=== PATIENT | male | born 1980 | race Caucasian/White ===

== ENCOUNTER 2023-10-29 17:25 | Emergency (ER) | payer OTHER ==
[~2023-10-29] VITALS: Ht 172.7 cm; Wt 131.5 kg
[2023-10-29 17:55] LABS: BASOPHILS # (AUTO) 0.05 K/uL (0.00-0.20); BASOPHILS % (AUTO) 0.7 % (0.0-5.0); EOSINOPHILS # (AUTO) 0.35 K/uL (0.00-0.70); EOSINOPHILS % (AUTO) 4.7 % (0.0-8.0); HEMATOCRIT 46.6 % (42-54); IMMATURE GRANULOCYTE ABSOLUTE 0.02 K/uL (0-1); LYMPHOCYTES # (AUTO) 2.6 K/uL (1.0-4.8); LYMPHOCYTES % (AUTO) 35.2 % (21.0-51.0); MEAN CORPUSCULAR HEMOGLOBIN 30.4 pg (27.0-33.0); MEAN CORPUSCULAR HGB CONC 34.3 g/dL (32.0-36.0); MEAN CORPUSCULAR VOLUME 88.6 fL (79-99); MONOCYTES # (AUTO) 0.7 K/uL (0.1-1.0); MONOCYTES % (AUTO) 9.9 % (3.0-13.0); NEUTROPHILS # (AUTO) 3.7 K/uL (1.8-7.7); NEUTROPHILS % (AUTO) 49.2 % (40.0-77.0); PLATELET COUNT (AUTO) 356 K/uL (130-400); RED BLOOD CELL COUNT(AUTO) 5.26 MIL/uL (4.50-6.20); RED CELL DISTRIBUTION WIDTH 12.3 % (11.0-15.5); WHITE BLOOD COUNT (AUTO) 7.5 K/uL (4.8-10.8)
[2023-10-29 18:06] LABS: POTASSIUM 4.1 mmol/L (3.5-5.1)
[2023-10-29 18:11] LABS: ALBUMIN 3.5 g/dL (3.5-5.0); BILIRUBIN,TOTAL 0.2 mg/dL (0.2-1.0)
[2023-10-29] MEDS: ASPIRIN 325MG TAB PO ONE (18:36)
[2023-10-29 18:54] LABS: APPEARANCE,URINE CLEAR (CLEAR); BILIRUBIN,URINE NEGATIVE (NEGATIVE); COLOR,URINE LIGHT-YELLOW (YELLOW); GLUCOSE, URINE (UA) NEGATIVE (NEGATIVE); KETONES,URINE NEGATIVE (NEGATIVE); LEUKOCYTE ESTERASE ,URINE NEGATIVE Leu/uL (NEGATIVE); NITRATE,URINE NEGATIVE (NEGATIVE); OCCULT BLOOD,URINE NEGATIVE (NEGATIVE); PH,URINE 5.5 (5.0-8.0); PROTEIN,URINE NEGATIVE (NEGATIVE); UROBILINOGEN,URINE 0.2 mg/dL (0.2-1.0)
[2023-10-29 19:01] LABS: ADD UA MICROSCOPIC NO
[2023-10-29 19:55] VITALS: BP 136/79; PULSE 65; RESP 18; O2SAT 100
== END 2023-10-29 20:06 | disposition home or self-care (01) ==
LOC: EDH 17:25
DX: R07.89 Other chest pain (principal); F41.9 Anxiety disorder, unspecified
CPT/HCPCS: 36415; 71045; 80053; 81003; 84484; 85025; 93005

== ENCOUNTER 2024-12-09 10:03 | Emergency (ER) | payer OTHER ==
[~2024-12-09] VITALS: Ht 172.7 cm; Wt 145.1 kg
--- NOTE | 2024-12-09 10:19 | ERN ---
ED Note History of Present Illness Stated Complaint: FLANK PAIN Chief Complaint: Flank Pain Time Seen by MD: 10:08 Dictation: PATIENT IS A 43-YEAR-OLD MALE COMING IN FROM THE [facility] WITH COMPLAINTS OF LEFT FLANK PAIN THAT RADIATES TO LEFT LOWER QUADRANT. HE DENIES FEVER CHILLS NAUSEA VOMITING NO CHANGE IN URINATION. STATES HE HAS A HISTORY OF KIDNEY STONES, UROLOGISTS IS IN [facility]. HE HAS TAKEN NOTHING TODAY PRIOR TO ARRIVAL PAIN STOMACH STATES IT WAS A SUDDEN ONSET OF PAIN. Allergies: Coded Allergies: No Known Drug Allergies (Unverified Allergy, Unknown, 10/29/23) Past Medical History Past Medical History: Anxiety Surgical History: None RN Note Reviewed/Agreed w/PFSH: Yes Review of System Dictation CONSTITUTIONAL: NEGATIVE EXCEPT FOR HPI HEAD/FACE: NEGATIVE EXCEPT FOR HPI EENT: NEGATIVE EXCEPT FOR HPI RESPIRATORY: NEGATIVE EXCEPT FOR HPI GASTROINTESTINAL/ABDOMINAL: NEGATIVE EXCEPT FOR HPI LEFT FLANK PAIN THAT RADIATES LEFT LOWER QUADRANT GENITOURINARY: NEGATIVE EXCEPT FOR HPI MUSCULOSKELETAL: NEGATIVE EXCEPT FOR HPI INTEGUMENTARY: NEGATIVE EXCEPT FOR HPI NEUROLOGICAL/PSYCH: NEGATIVE EXCEPT FOR HPI HEMATOLOGIC/LYMPHATIC: NEGATIVE EXCEPT FOR HPI ALL SYSTEMS NEGATIVE, EXCEPT NOTED ABOVE. 13 POINT REVIEW OF SYSTEMS ASSESSED AND ALL NEGATIVE EXCEPT FOR ABOVE. Initial Vital Sign VS Vital Signs Date Time Temp Pulse Resp B/P (MAP) Pulse Ox O2 Delivery O2 Flow Rate FiO2 12/09/24 10:04 97.9 78 18 169/95 95 Room Air Physical Exam Dictation VITAL SIGNS REVIEWED GENERAL APPEARANCE: ALERT, ORIENTED X 3, MODERATE ACUTE DISTRESS, WELL DEVELOPED, NOURISHED. OBESE HEAD AND FACE: NON-TRAUMATIC. EYES: PERRL, PINK CONJUNCTIVAS, EYELID NO TRAUMA, ANTERIOR CHAMBER WITH ARCUS SENILIS. EARS: PINNAS INTACT AND NO SIGNS OF TRAUMA OR ERYTHEMA EAR CANALS CLEAR AND NO DISCHARGE TM NO ERYTHEMA NOSE: NO DISCHARGE, NO BLEEDING. OROPHARYNX: MOUTH NORMAL, TONGUE PINK, PHARYNX CLEAR,NO ERYTHEMA, TONSILS NO EXUDATES, NO ABSCESSES NOTED, MUCOUS MEMBRANE MOIST NECK: SUPPLE, NON-TENDER, NO THYROMEGALY, NO MASSES, NO JVD, NO BRUITS BREAST:DEFERRED CHEST:NO TENDERNESS, NO CREPITUS, NO PARADOXICAL MOVEMENT, NO RETRACTIONS LUNGS:CLEAR, WELL-VENTILATED, SYMMETRIC, NO RALES, NO WHEEZING, NO RHONCHI, NO STRIDOR, GOOD BREATH SOUNDS BILATERALLY HEART: REGULAR RATE, REGULAR RHYTHM, NO MURMUR, NO GALLOPS VASCULAR: NO PERIPHERAL EDEMA, ABDOMEN: SOFT, POSITIVE BOWEL SOUNDS, NONDISTENDED, NO GUARDING, NONTENDER, NO REBOUND, NO MASSES NO HEPATOMEGALY, NO SPLENOMEGALY, NO MEDLEY'S SIGN, NO HERNIAS. NEGATIVE CVAT BILATERALLY RECTAL: DEFERRED GENITAL: DEFERRED NEUROLOGICAL: NORMAL SPEECH, MOTOR FUNCTION INTACT, SENSORY FUNCTION INTACT MUSCULOSKELETAL: NECK NONTENDER, FULL RANGE OF MOTION, BACK NONTENDER, FULL RANGE OF MOTION, EXTREMITIES: NONTENDER, FULL RANGE OF MOTION SKIN: COLOR PINK, DRY, NO TURGOR, NO RASH, NO LACERATIONS, NO ABRASIONS, NO CONTUSIONS. LYMPHATIC: DEFERRED Results (Laboratory/Radiology) Laboratory/Radiology Laboratory Tests Test 12/09/24 10:17 12/09/24 10:29 Urine Color COLORLESS (YELLOW) Urine Appearance CLEAR (CLEAR) Urine pH 5.5 (5.0-8.0) Urine Specific [place] 1.009 (1.001-1.031) Urine Protein NEGATIVE mg/dL (NEGATIVE) Urine Glucose (UA) NEGATIVE mg/dL (NEGATIVE) Urine Ketones NEGATIVE mg/dL (NEGATIVE) Urine Occult Blood SMALL (NEGATIVE) H Urine Nitrate NEGATIVE (NEGATIVE) Urine Bilirubin NEGATIVE mg/dL (NEGATIVE) Urine Urobilinogen 0.2 mg/dL (0.2-1.0) Urine Leukocyte Esterase NEGATIVE Nadiya/uL Urine RBC 2-5 /HPF (0-1) H Urine WBC 0-1 /HPF (0-1) Urine Bacteria None /HPF (None Seen) White Blood Count 8.2 K/uL (4.8-10.8) Red Blood Count 5.19 MIL/uL (4.50-6.20) Hemoglobin 15.1 g/dL (14.0-18.0) Hematocrit 45.5 % (42-54) Mean Corpuscular Volume 87.7 fL (79-99) Mean Corpuscular Hemoglobin 29.1 pg (27.0-33.0) Mean Corpuscular Hemoglobin Concent 33.2 g/dL (32.0-36.0) Red Cell Distribution Width 12.2 % (11.0-15.5) Platelet Count 350 K/uL (130-400) Mean Platelet Volume 8.4 fL (7.5-10.5) Immature Granulocyte % (Auto) 0.6 % (0-1) Neutrophils (%) (Auto) 48.3 % (40.0-77.0) Lymphocytes (%) (Auto) 38.9 % (21.0-51.0) Monocytes (%) (Auto) 6.0 % (3.0-13.0) Eosinophils (%) (Auto) 5.7 % (0.0-8.0) Basophils (%) (Auto) 0.5 % (0.0-5.0) Neutrophils # (Auto) 4.0 K/uL (1.8-7.7) Lymphocytes # (Auto) 3.2 K/uL (1.0-4.8) Monocytes # (Auto) 0.5 K/uL (0.1-1.0) Eosinophils # (Auto) 0.47 K/uL (0.00-0.70) Basophils # (Auto) 0.04 K/uL (0.00-0.20) Absolute Immature Granulocyte (auto 0.05 K/uL (0-1) Nucleated Red Blood Cells 0.0 % (0.0-0.19) Sodium Level 141 mmol/L (136-145) Potassium Level 4.1 mmol/L (3.5-5.1) Chloride Level 106 mmol/L (101-111) Carbon Dioxide Level 28 mmol/L (21-32) Blood Urea Nitrogen 12 mg/dL (7-18) Creatinine 1.0 mg/dL (0.5-1.3) Glomerular Filtration Rate Calc 95 mL/min (>90) Random Glucose 120 mg/dL (70-105) H Total Calcium 8.9 mg/dL (8.5-10.1) Lipase 104 U/L (16-77) H CT ABDOMEN/PELVIS W/O CONTRAST REASON: LEFT FLANK PAIN RADIATING LEFT LOWER QUADRANT HISTORY OF STONE COMPARISON: None. FINDINGS: Lung bases are clear. There is moderate hepatic steatosis.. The liver does not appear enlarged.. Spleen and pancreas appear unremarkable. The gallbladder appears normal as well. There are bilateral small kidney stones, 2 in each kidney, each less than 5 mm. There is mild left hydronephrosis and hydroureter. There is a 3 mm stone distal left ureter in the intramural portion of the ureter at the ureterovesical junction. The right ureter appears unremarkable. Urinary bladder appears normal. Bowel loops appear unremarkable. This includes normal appearance of the appendix There is no evidence of free fluid or intraperitoneal air. There are no focal fluid collections. Aorta and retroperitoneum appear normal as do pelvic soft tissue structures. The anterior abdominal wall is intact. Osseous structures appear unremarkable. IMPRESSION: 1. 3 mm stone in the distal left ureter at ureterovesical junction, there is mild left hydronephrosis. 2. There are additional subcentimeter nonobstructing stones, several in each kidney, the kidneys appear otherwise normal. 3. Moderate hepatic steato Labs Reviewed?: Yes ED Course ED Course Orders Procedure Category Date Status Time Cbc With Differential LAB 12/09/24 Complete 10:18 Urinalysis Profile LAB 12/09/24 Complete 10:18 0.9%Nacl 1000ml (Ns PHA 12/09/24 Complete 1000ml) 10:30 Ketorolac PHA 12/09/24 Complete Tromethamine 30mg/Ml 10:30 Ct Abdomen/Pelvis W/O CT 12/09/24 Resulted Contrast 10:18 Lipase LAB 12/09/24 Complete 10:18 Basic Metabolic Panel LAB 12/09/24 Complete 10:18 Tamsulosin Hcl PHA 12/09/24 Transmitted (Flomax) 12:30 Current Medications Medications (Trade) Dose Ordered Sig/Negra Route PRN Reason Start Time Stop Time Status Last Admin Dose Admin Ketorolac Tromethamine (toRADol) 30 mg ONCE ONCE IVP 12/09/24 10:30 12/09/24 10:31 DC 12/09/24 10:25 Sodium Chloride 1,000 ml @ 0 mls/hr ONCE ONCE IV 12/09/24 10:30 12/09/24 10:31 DC 12/09/24 10:24 Vital Signs Date Time Temp Pulse Resp B/P (MAP) Pulse Ox O2 Delivery O2 Flow Rate FiO2 12/09/24 10:04 97.9 78 18 169/95 95 Room Air 1218/PATIENT HAS A 3 MM STONE ON THE LEFT WITH MILD HYDRO NEPHROSIS. BUN AND CREATININE ARE NORMAL. PATIENT WILL BE DISCHARGED HOME WITH NONOBSTRUCTIVE STONE WE WILL BE GIVEN IBUPROFEN AND FLOMAX REFERRED TO DR. GRIDER, TOLD INCREASE FLUIDS. Medical Decision Making MDM MEDICAL DISCHARGE MAKING BASED ON BASIC LABS AND CT FOR STONE PROTOCOL. LABS ESSENTIALLY UNREMARKABLE EXCEPT FOR HEMATURIA BUN AND CREATININE NORMAL PATIENT HAS A NONOBSTRUCTIVE 3 MM STONE TO THE LEFT UVJ JUNCTION MILD HYDRO NEPHROSIS. GIVEN IV FLUIDS, FLOMAX AND TORADOL NO PAIN AT THIS TIME. DX & DISP Disposition: Discharge Departure Impression: Primary Impression: Urolithiasis Additional Impressions: Hydronephrosis, left, Hematuria Condition: Stable Scripts Ibuprofen (Ibuprofen 800 mg Tab) 800 Mg Tab 800 MG PO Q8H PRN for fever or pain, #30 TAB 0 Refills Prov: SIVAN SELBY CATERPILLAR DRIVER 12/09/24 Tamsulosin HCl (Flomax) 0.4 Mg Cap.er.24h 0.4 MG PO DAILY for 14 Days, #[address] CAPSULE[address] Prov: SIVAN SELBY CATERPILLAR DRIVER 12/09/24 Additional Instructions: FOLLOW-UP WITH PRIMARY CARE PROVIDER IN 1 TO 2 DAYS. TAKE MEDICATIONS DIRECTED HERE IN THE EMERGENCY ROOM. OKAY TO CONTINUE HOME MEDICATIONS UNLESS OTHERWISE DISCUSSED DURING YOUR VISIT IN THE EMERGENCY ROOM TODAY. RETURN TO YOUR NEAREST EMERGENCY ROOM IF SYMPTOMS WORSEN OR IF THERE IS NO IMPROVEMENT. CALL 911 IF YOU NEED IMMEDIATE ASSISTANCE. TAKE TYLENOL OR MOTRIN OVER -THE-COUNTER NEEDED AND IF NO CONTRAINDICATIONS ARE PRESENT. INCREASE ORAL HYDRATION. A WOUND CULTURE OR URINE CULTURE WAS ORDERED HERE IN THE EMERGENCY ROOM DEPARTMENT PLEASE FOLLOW-UP WITH PRIMARY CARE PROVIDER AND ADVISE THEM TO GET REPEAT PORTS FROM OUR FACILITY. IF YOU HAD ANY DONNIE WRAP/SPLINTS THAT WERE APPLIED HERE, PLEASE DO NOT REMOVE THEM UNTIL YOU SEE YOUR PRIMARY CARE OR SPECIALTY. TAKE FLOMAX DIRECTED DAILY. INCREASE YOUR WATER INTAKE. FOLLOW UP WITH UROLOGIST IN THE NEXT 1-2 DAYS, CALL FOR AN APPOINTMENT OR SEE YOUR UROLOGIST IN [facility]. Referrals: FERNIE ALVAREZ (PCP) IRVING GRIDER MD Time of Disposition: 12:21 I have reviewed the case, and I agree with, Diagnosis and Plan SIVAN SELBY NP Dec 09, 2024 10:19
[2024-12-09 10:24] LABS: APPEARANCE,URINE CLEAR (CLEAR); BILIRUBIN,URINE NEGATIVE (NEGATIVE); COLOR,URINE COLORLESS (YELLOW); GLUCOSE, URINE (UA) NEGATIVE (NEGATIVE); KETONES,URINE NEGATIVE (NEGATIVE); LEUKOCYTE ESTERASE ,URINE NEGATIVE Leu/uL (NEGATIVE); NITRATE,URINE NEGATIVE (NEGATIVE); OCCULT BLOOD,URINE SMALL (NEGATIVE); PH,URINE 5.5 (5.0-8.0); PROTEIN,URINE NEGATIVE (NEGATIVE); UROBILINOGEN,URINE 0.2 mg/dL (0.2-1.0)
[2024-12-09] MEDS: 0.9%NACL 1000ML 1,000 ML IV ONE (10:24)
[2024-12-09] MEDS: ketOROlac 30MG VIAL (30MG/ML) IVP ONE (10:25)
[2024-12-09 10:36] LABS: BASOPHILS # (AUTO) 0.04 K/uL (0.00-0.20); BASOPHILS % (AUTO) 0.5 % (0.0-5.0); EOSINOPHILS # (AUTO) 0.47 K/uL (0.00-0.70); EOSINOPHILS % (AUTO) 5.7 % (0.0-8.0); HEMATOCRIT 45.5 % (42-54); IMMATURE GRANULOCYTE ABSOLUTE 0.05 K/uL (0-1); LYMPHOCYTES # (AUTO) 3.2 K/uL (1.0-4.8); LYMPHOCYTES % (AUTO) 38.9 % (21.0-51.0); MEAN CORPUSCULAR HEMOGLOBIN 29.1 pg (27.0-33.0); MEAN CORPUSCULAR HGB CONC 33.2 g/dL (32.0-36.0); MEAN CORPUSCULAR VOLUME 87.7 fL (79-99); MONOCYTES # (AUTO) 0.5 K/uL (0.1-1.0); NEUTROPHILS % (AUTO) 48.3 % (40.0-77.0); PLATELET COUNT (AUTO) 350 K/uL (130-400); RED BLOOD CELL COUNT(AUTO) 5.19 MIL/uL (4.50-6.20); RED CELL DISTRIBUTION WIDTH 12.2 % (11.0-15.5); WHITE BLOOD COUNT (AUTO) 8.2 K/uL (4.8-10.8)
[2024-12-09 10:37] LABS: ADD UA MICROSCOPIC YES
[2024-12-09 10:40] LABS: WBC,URINE 0-1 /HPF (0-1)
[2024-12-09 10:48] LABS: POTASSIUM 4.1 mmol/L (3.5-5.1)
--- NOTE | 2024-12-09 12:12 | HMCIMG ---
CT ABDOMEN/PELVIS W/O CONTRAST REASON: LEFT FLANK PAIN RADIATING LEFT LOWER QUADRANT HISTORY OF STONE COMPARISON: None. FINDINGS: Lung bases are clear. There is moderate hepatic steatosis.. The liver does not appear enlarged.. Spleen and pancreas appear unremarkable. The gallbladder appears normal as well. There are bilateral small kidney stones, 2 in each kidney, each less than 5 mm. There is mild left hydronephrosis and hydroureter. There is a 3 mm stone distal left ureter in the intramural portion of the ureter at the ureterovesical junction. The right ureter appears unremarkable. Urinary bladder appears normal. Bowel loops appear unremarkable. This includes normal appearance of the appendix There is no evidence of free fluid or intraperitoneal air. There are no focal fluid collections. Aorta and retroperitoneum appear normal as do pelvic soft tissue structures. The anterior abdominal wall is intact. Osseous structures appear unremarkable. IMPRESSION: 1. 3 mm stone in the distal left ureter at ureterovesical junction, there is mild left hydronephrosis. 2. There are additional subcentimeter nonobstructing stones, several in each kidney, the kidneys appear otherwise normal. 3. Moderate hepatic steatosis CT was performed with one or more following dose reduction techniques: automated exposure control, adjustment of the mA and kv according to patient's size, or use of a iterative reconstruction technique.
[2024-12-09] MEDS ORDERED: TAMS-55 PO (12:22)
[2024-12-09] MEDS ORDERED: IBUP-2077 PO (12:22)
[2024-12-09 12:27] VITALS: BP 151/87; PULSE 76; RESP 18; TEMP 97.9; O2SAT 97
[2024-12-09] MEDS: tamSULOsin HCL 0.4 MG CAP.ER.24H PO ONE (12:30)
[2024-12-10] MEDS ORDERED: KETO10 PO (13:26)
[2024-12-10] MEDS ORDERED: ACET-2079 PO (13:27)
== END 2024-12-09 12:34 | disposition home or self-care (01) ==
LOC: EDH 10:03
DX: N13.2 Hydronephrosis with renal and ureteral calculous obstruction (principal); R31.9 Hematuria, unspecified; F41.9 Anxiety disorder, unspecified
CPT/HCPCS: 99284; 99285; 80048; 83690; 85025; 81001; 36415; 74176; 96374; 96361; 96375; 96376 ×2; J2270 ×2; J7030; J2405; J1885 ×2

== ENCOUNTER 2024-12-10 10:50 | Observation (INO) | payer OTHER ==
[~2024-12-10] VITALS: Ht 172.7 cm; Wt 147.4 kg
[~2024-12-10 10:50] MED LIST: IBUP-2077 PO; TAMS-55 PO
[2024-12-10] MEDS: ondanSETRON ODT 4MG TAB SL ONE (12:26)
[2024-12-10] MEDS: ketOROlac 30MG VIAL (30MG/ML) IM ONE (12:26)
[2024-12-10] MEDS: morPHINE 2 MG SYG IM ONE (12:26)
[2024-12-10] MEDS ORDERED: KETO10 PO (13:26)
[2024-12-10] MEDS ORDERED: ACET-2079 PO (13:27)
--- NOTE | 2024-12-10 13:28 | ERN ---
ED Note History of Present Illness Stated Complaint: KIDNEY STONES Chief Complaint: Flank Pain Time Seen by MD: 10:56 Dictation: This is a 43-year-old morbidly obese male who presented to the emergency room 3rd time in the past 48 hours with severe left flank pain. He was extensively evaluated and diagnosed with kidney stones with renal colic and also left hydronephrosis. He responded to NSAIDs and was discharged to home only to return the 2nd time with severe pain. Today he stated that he could not stand the pain and he has taken ibuprofen 800 mg as well as tamsulosin. Upon presentation and my initial evaluation he stated the Toradol works well. He had hematuria but no fevers chills or rigors. His temperature 98.2 pulse 73 respirations 16 blood pressure 160/91 with a pulse oximetry of 99% on room air Allergies: Coded Allergies: No Known Drug Allergies (Unverified Allergy, Unknown, 10/29/23) Home Meds Active Scripts Acetaminophen with Codeine (Acetaminophen-Cod #3 Tablet) 300 Mg-30 Mg Tablet, 1 TAB PO Q6HPRN PRN for pain for 5 Days, #20 TAB 0 Refills Prov:PARMINDER AYOUB MD 12/10/24 Ketorolac Tromethamine (Toradol) 10 Mg Tab, 10 MG PO QID for pain for 5 Days, #20 TAB 0 Refills Prov:PARMINDER AYOUB MD 12/10/24 Ibuprofen (Ibuprofen 800 mg Tab) 800 Mg Tab, 800 MG PO Q8H PRN for fever or pain, #30 TAB 0 Refills Prov:SIVAN SELBY NP 12/09/24 Tamsulosin HCl (Flomax) 0.4 Mg Cap.er.24h, 0.4 MG PO DAILY for 14 Days, #14 CAPSULE. Prov:SIVAN SELBY NP 12/09/24 Past Medical History Past Medical History: No Pertinent History, Kidney Stone Surgical History: None Family History: Negative RN Note Reviewed/Agreed w/PFSH: Yes Review of System Dictation Constitutional: Negative for fever,chills, and weight loss Eyes: Negative for injury, pain,redness, and discharge ENT: Negative for injury,pain or swelling Cardiovascular: Negative for chest pain, palpitations, and edema Respiratory: Negative for shortness of breath, cough, and wheezing, Abdomen/GI: Negative for abdominal pain, nausea, vomiting, diarrhea, and constipation Back: Negative for injury and pain : Negative for injury, bleeding and discharge positive for intermittent severe excruciating left flank pain MS/Extremity: Negative for injury and deformity Skin: Negative for rash, and discoloration Neuro: Negative for headache, weakness, numbness, tingling, and seizure Psych: Negative for suicide ideation, homicidal ideation, and hallucinations Initial Vital Sign VS Vital Signs Date Time Temp Pulse Resp B/P (MAP) Pulse Ox O2 Delivery O2 Flow Rate FiO2 12/10/24 11:00 98.2 73 16 160/91 99 Room Air 0 12/10/24 11:45 21 Physical Exam Dictation General: awake, alert, NAD extremely obese Head/Face: Normocephalic, atraumatic Eyes: PERRL, EOMI, vision at baseline ENT: oral cavity clear, TMs clear, no signs of infection Neck: Trachea midline, supple, no nuchal rigidity Cardiovascular: RRR, normal S1/S2, No MRGs, no JVD Respiratory: CTAB, no respiratory distress, No rales or wheezes Abdomen: Soft, non-tender, non-distended, normal bowel sounds, no guarding or rebound. Skin: Warm, dry, normal turgor, no rash MS/Extremity: Pulses equal, no cyanosis, neurovascular intact, FROM Neuro: COAx4, GCS 15, strength 5/5, CN 2-12 intact, normal cerebellar exam, normal gait, Psych: Normal behavior, mood, and affect normal Extremities-trace edema without any palpable cords, Homans sign is negative Results (Laboratory/Radiology) Labs Reviewed?: Yes ED Course ED Course Orders Procedure Category Date Status Time Ketorolac PHA 12/10/24 Complete Tromethamine 30mg/Ml 12:00 Morphine 2mg Syg PHA 12/10/24 Complete (Morphine 2mg Syg) 12:00 Ondansetron Odt 4mg PHA 12/10/24 Complete Tab (Zofran 4mg Odt) 12:00 Hydromorphone 1 Mg PHA 12/10/24 Complete Inj (Dilaudid 1mg Inj 14:00 Ondansetron 4mg Inj PHA 12/10/24 Complete (Zofran 4mg Inj) 14:00 0.9%Nacl 1000ml (Ns PHA 12/10/24 Complete 1000ml) 14:00 0.9%Nacl 1000ml (Ns PHA 12/10/24 In Process 1000ml) 15:30 Edm Admit Bridge Order ADM 12/10/24 Transmitted 15:34 Current Medications Medications (Trade) Dose Ordered Sig/Negra Route PRN Reason Start Time Stop Time Status Last Admin Dose Admin Hydromorphone HCl (DiLAUDid 1MG INJ) 1 mg ONCE ONCE IVP 12/10/24 14:00 12/10/24 14:01 DC 12/10/24 14:09 Ketorolac Tromethamine (toRADol) 30 mg ONCE ONCE IM 12/10/24 12:00 12/10/24 12:01 DC 12/10/24 12:26 Morphine Sulfate (morPHINE 2MG SYG) 2 mg ONCE ONCE IM 12/10/24 12:00 12/10/24 12:01 DC 12/10/24 12:26 Ondansetron HCl (zoFRAN 4MG INJ) 4 mg ONCE ONCE IVP 12/10/24 14:00 12/10/24 14:01 DC 12/10/24 14:09 Ondansetron HCl (zoFRAN 4MG ODT) 4 mg ONCE ONCE SL 12/10/24 12:00 12/10/24 12:01 DC 12/10/24 12:26 Sodium Chloride 1,000 ml @ 0 mls/hr ONCE ONCE IV 12/10/24 14:00 12/10/24 14:01 DC 12/10/24 14:09 Sodium Chloride 1,000 ml @ 0 mls/hr Q0M IV 12/10/24 15:30 01/09/25 15:29 Vital Signs Date Time Temp Pulse Resp B/P (MAP) Pulse Ox O2 Delivery O2 Flow Rate FiO2 12/10/24 13:05 98.8 84 18 147/63 98 Room Air* 0 21 12/10/24 11:45 97.9 76 16 156/80 96 Room Air* 0 21 12/10/24 11:00 98.2 73 16 160/91 99 Room Air 0 We will perform diagnostic labs, advanced imaging and administer medications according to the patient's complaint. Once the results are available, will review and personally interpreted the labs to rule out any acute life-t hreatening emergency the trach require immediate intervention and treatment. I will then re-evaluate the patient after treatment and diagnostic exams have return to determine whether the patient requires any further testing, can safely be discharged home or need further admission to hospital for additional treatment and evaluation. Hydration, a Toradol and Zofran 1:45 p.m. patient felt somewhat better however he is unable to get comfortable in any position. 2:00 p.m.-continue hydration, IV pain medications. 3:00 p.m. patient continues to have intermittent severe pain. Recommended admission to the hospital for pain management as well as possibly Urology evaluation. And he is agreeable 3:36 p.m. patient was accepted by [facility] provider for [facility] hospitalist group for further admission and management Medical Decision Making MDM MDM: Differential diagnosis: Refractory renal colic, infected stone, hydronephrosis, lumbago, lumbar radiculopathy Rationale: Tests considered and ordered secondary to shared decision making include: labs, ECG and radiology Previous outside records reviewed: Old ER visits. Risk of complication and/or morbidity or mortality of patient management: None Medications-Per medication reconciliation Need for hospitalization: Patient does meet criteria for hospitalization. Need for emergency major/minor surgery: No There are no social concerns with this patient. Prescription drug management Prescriptions will include symptomatic care Patient's prior external medical records from other ER visits were reviewed by me as indicated. Prior testing and results from previous visits were reviewed. Prior tests were taken into account with medical decision making and resource utilization, independent historian/historians were used to obtain complete medical history. I independently interpreted the test that were performed, results were reviewed by me and considered findings on radiology if ordered. Medical management and examination interpretation discussions were had by me with other qualified healthcare professionals as indicated for the patient's care. Problem List Problem List: (1) Renal colic on left side (2) Hematuria (3) Urolithiasis (4) Hydronephrosis, left (5) Intractable pain DX & DISP Disposition: Inpatient Decision to Admit Time: 02:55 Departure Impression: Primary Impression: Renal colic on left side Additional Impressions: Urolithiasis, Hematuria, Hydronephrosis, left, Intractable pain Condition: Stable Scripts Acetaminophen with Codeine (Acetaminophen-Cod #3 Tablet) 300 Mg-30 Mg Tablet 1 TAB PO Q6HPRN PRN for pain for 5 Days, #20 TAB 0 Refills Prov: PARMINDER AYOUB MD 12/10/24 Ketorolac Tromethamine (Toradol) 10 Mg Tab 10 MG PO QID for pain for 5 Days, #20 TAB 0 Refills Prov: PARMINDER AYOUB MD 12/10/24 Additional Instructions: Patient was informed of all the diagnostic labs and procedures conducted in the emergency room today and demonstrated understanding of the results. I personally reviewed and interpreted all the diagnostic exams performed in the ER today. The patient will be admitted to the hospital for further treatment and evaluation. Disposition-admit to facility Condition-stable/guarded Course-uncertain at this time Pain status-decreased Assessment-exam unchanged Admission Certification- I certify that the patients status is appropriate and is based on my best clinical judgment and the patient's condition as documented in the medical records Referrals: FERNIE ALVAREZ (PCP) PARMINDER AYOUB MD Dec 10, 2024 13:28
[2024-12-10] MEDS: 0.9%NACL 1000ML 1,000 ML IV ONE (14:09)
[2024-12-10] MEDS: hydroMORPHone 1 MG INJ IVP ONE (14:09)
[2024-12-10] MEDS: ondanSETRON 4MG INJ IVP ONE (14:09)
--- NOTE | 2024-12-10 15:45 | HP ---
[facility] HISTORY [facility] PHYSICAL Date of Service: Dec 10, 2024 Time of Service: 15:35 HISTORY OF PRESENT ILLNESS: [ ] admission date: 12/10/24 PCP: Phyllis Bangura MD This is a 43-year-old male that presents in ER with chief complaints of left sided flank pain. Apparently this patient has been seen by ER three times for similar symptoms: Patient was sent home on ibuprofen and Flomax patient reports pain subsides and then pain starts all over associated with vomiting. Patient reports taking ibuprofen 800 and deny help with pain and decided to come to ED for further evaluation. Patient has significant medical history of kidney stones in the past. Patient reports no fever chills. Given to patient has been in ER 3 times over 36 hours we will consult urologists for intervention if needed. For now we will continue with pain management. REVIEW OF SYSTEMS a 14 point ROS was obtained all relevant positives were documented otherwise ROS negative PAST MEDICAL HISTORY: [ ]kidney stone s PAST SURGICAL HISTORY: [ ]none PAST SOCIAL HISTORY: [ ]vaping prefill: last about 2 wks. FAMILY HISTORY: [ ] noncontributory Coded Allergies: No Known Drug Allergies (Unverified Allergy, Unknown, 10/29/23) PHYSICAL EXAM GENERAL APPEARANCE: The patient is awake, alert, and oriented, in no acute cardiopulmonary distress. NEUROLOGICAL: Cranial nerves II-XII grossly intact. Motor is 5/5 in bilateral upper and lower extremities proximal to distal. No sensory deficits. HEENT: Face is symmetric. Pupils are equal and reactive. Extraocular movements are intact. NECK: Supple. No JVD. No thyromegaly. No submental, submandibular, pre- /postauricular, occipital or supraclavicular lymphadenopathy. CHEST: Normal chest expansion. No Telemetry. LUNGS: Absence of any rales, rhonchi or any wheezing. CARDIOVASCULAR: Regular. S1 and S2 normal. No appreciable rubs, murmurs or gallops. ABDOMEN: Soft, nontender, and nondistended. There is no rebound, voluntary guarding, or rigidity. : Deferred. No Ribera. EXTREMITIES: Non-edematous and not cyanotic. No clubbing. Good capillary refill. SKIN: No skin breakdown. Vital Sign (Last 24 Hours) 12/10/24 13:05 Temp 98.8 Pulse 84 Resp 18 B/P (MAP) 147/63 Pulse Ox 98 O2 Delivery Room Air* O2 Flow Rate 0 FiO2 21 LABS: Current Medications Medications (Trade) Dose Ordered Sig/Negra Route PRN Reason Start Time Stop Time Status Last Admin Dose Admin Sodium Chloride 1,000 ml @ 0 mls/hr Q0M IV 12/10/24 15:30 01/09/25 15:29 DIAGNOSTICS / RADIOLOGY: [ ] REASON: LEFT FLANK PAIN RADIATING LEFT LOWER QUADRANT HISTORY OF STONE ORDERING PHYSICIAN: SIVAN SELBY INTERNAL CORROSION SPECIALIST PROCEDURE: ABD PEL WO - CT ABDOMEN/PELVIS W/O CONTRAST CT ABDOMEN/PELVIS W/O CONTRAST REASON: LEFT FLANK PAIN RADIATING LEFT LOWER QUADRANT HISTORY OF STONE COMPARISON: None. FINDINGS: Lung bases are clear. There is moderate hepatic steatosis.. The liver does not appear enlarged.. Spleen and pancreas appear unremarkable. The gallbladder appears normal as well. There are bilateral small kidney stones, 2 in each kidney, each less than 5 mm. There is mild left hydronephrosis and hydroureter. There is a 3 mm stone distal left ureter in the intramural portion of the ureter at the ureterovesical junction. The right ureter appears unremarkable. Urinary bladder appears normal. Bowel loops appear unremarkable. This includes normal appearance of the appendix There is no evidence of free fluid or intraperitoneal air. There are no focal fluid collections. Aorta and retroperitoneum appear normal as do pelvic soft tissue structures. The anterior abdominal wall is intact. Osseous structures appear unremarkable. IMPRESSION: 1. 3 mm stone in the distal left ureter at ureterovesical junction, there is mild left hydronephrosis. 2. There are additional subcentimeter nonobstructing stones, several in each kidney, the kidneys appear otherwise normal. 3. Moderate hepatic steatosis CT was performed with one or more following dose reduction techniques: automated exposure control, adjustment of the mA and kv according to patient's size, or use of a iterative reconstruction technique. ASSESSMENT: intractable renal colic pain/ left flank pain mild hydronephrosis left sided POA Multiple stones; 3 mm stone distal left ureter in the morbid obesity; BMI: 48.6 vaping dependency POA PLAN: [ ] Admit: medical surgical floor condition:guarded Status: full code IVF: NS at 75 ml/hr Consultants urologist Antibiotics: Rocephin 1 gm IV daily Flomax 0.4 mg po daily pain management; Toradol IV and Morphine as needed Labs cbc, cmp, mag+ Replace electrolytes as needed as per protocol to keep potassium above 4.0 magnesium 2.0. smoking cessation Home medications pending to be reviewed by RN nurse. PRN: MEDICATIONS Tylenol 650 mg po every 4 hrs for fever Zofran 4 mg IV every 6 hrs for n/v Hydralazine 5 mg IV every 4 hrs systolic pressure > 160 bowel regiment: lactulose 20 gm PO BID PRN constipation Supportive measures: DVT ppx, GI ppx all questions answered time spent: > 35 min Supervising MD: Dr. Martino c/d This document was generated in part using voice recognition software, occasional wrong word or sound alike substitutions may have occurred due to the inherent limitations of voice recognition software. Read the chart carefully and recognize using context, where the substitutions have occurred. Although every effort was made to edit the content, production operations engineer and typing errors may occur ADVANCED CARE PLANNING 1. Which of the following were discussed? Hospice Care - Yes / No Therapeutic options - Yes / No Advance Directives - Yes / No Other discussions - 2. Discussed with who? 3. Voluntary nature of this service was explained to the patient? Yes / No 4. Amount of time spent - _patient 5. Reviewed by Physician? (if this service was performed by NPP) Yes / No ATTESTATION BY PHYSICIAN I have seen and examined the patient. I reviewed the documentation, medical decision making, and treatment plan as noted by the mid-level provider above. I agree with the findings and plan of care. LEMUEL MARTINO MD, ELIZABETH NP Dec 10, 2024 15:45
[2024-12-10] MEDS ORDERED: PoTASSium chloRIDE 20MEQ ER 20 MEQ ERTAB PO PRN (16:00)
[2024-12-10] MEDS ORDERED: hydrALAZine 20MG/ML VIAL IV PRN (16:00)
[2024-12-10] MEDS ORDERED: PoTASSium chloRIDE 20MEQ/100ML 100 ML IV PRN ×2 (16:00)
[2024-12-10] MEDS ORDERED: acetaMINOPHEN 325 MG TAB PO PRN (16:00)
[2024-12-10] MEDS ORDERED: MAGNESIUM 2GM PREMIX 50ML 50 ML IV PRN (16:00)
[2024-12-10] MEDS ORDERED: LACTULOSE 20 GM/30 ML UDCUP PO PRN (16:00)
[2024-12-10] MEDS ORDERED: PoTASSium chl 10% ELIXIR 20MEQ 20 MEQ/15 ML UDCUP PO PRN (16:00)
[2024-12-10] MEDS: 0.9%NACL 1000ML 1,000 ML IV SCH ×2 (16:03→17:37)
[2024-12-10] MEDS: HEParin 5,000 UNIT VIAL SQ SCH (16:07)
[2024-12-10] MEDS: cefTRIAXone 1G VIAL IVPB SCH (16:07)
[2024-12-10] MEDS: morPHINE 2 MG SYG IVP PRN (17:38)
[2024-12-10] MEDS: ondanSETRON 4MG INJ IVP PRN (19:46)
[2024-12-10] MEDS: FAMOTIDINE 20MG TAB PO SCH (20:47)
[2024-12-10] MEDS: ketOROlac 30MG VIAL (30MG/ML) IVP PRN (20:50)
--- NOTE | 2024-12-10 22:06 | CONS ---
CONSULTATION NOTE Date of Service: Dec 10, 2024 Reason for Consultation: Obstructing left UVJ calculus Requesting Physician: Justin Martino MD HISTORY OF PRESENT ILLNESS: 43-year-old male that presents in ER with chief complaints of left sided flank pain. Apparently this patient has been seen by ER three times for similar symptoms. Patient was sent home on ibuprofen and Flomax patient reports pain subsides and then pain starts all over associated with vomiting. Pain at the time of presentation was described as a stabbing ache radiating into the scrotal area, severity a nine on a scale of 1-10. Patient reports taking ibuprofen 800 and deny help with pain and decided to come to ED for further evaluation. Patient has significant medical history of kidney stones in the past. Patient reports no fever chills. Given to patient has been in ER 3 times over 36 hours we will consult urologists for intervention if needed. For now we will continue with pain management. A urological consult was requested. He has an established history of nephrolithiasis, he has been taking care of by a urologist in [place] with ketty Langston MD. patient is in the process of moving to [place]. REVIEW OF SYSTEMS CONSTITUTIONAL: Denies fever, chills, or fatigue. HEAD/FACE: No signs of trauma. EENT: Denies eye pain, blurred vision, double vision, or light sensitivity. RESPIRATORY: Denies shortness of breath, cough, wheezing CARDIOVASCULAR: Denies chest pain, palpitation, syncope GASTROINTESTINAL/ABDOMINAL: Denies abdominal pain, constipation, diarrhea, nausea or vomiting GENITOURINARY: Denies dysuria or hematuria, endorses flank pain MUSCULOSKELETAL: Denies joint pain, tenderness, or trauma. INTEGUMENTARY: Denies rash or itchiness NEUROLOGICAL/PSYCH: Denies anxiety, depression, heat or cold intolerance. PAST MEDICAL HISTORY: Nephrolithiasis PAST SURGICAL HISTORY: None PAST SOCIAL HISTORY: Denies ethanol, denies smoking and denies recreational drugs FAMILY HISTORY: Not contributory to presenting complaint Coded Allergies: No Known Drug Allergies (Unverified Allergy, Unknown, 10/29/23) PHYSICAL EXAM EYES: Anicteric. Pupils equal and reactive. HENT: No oral thrush seen, moist Oral mucosa NECK: Supple, no JVD or thyromegaly. LUNGS: Good air entry. No rales, no rhonchi. CARDIOVASCULAR: S1, S2 regular. No murmur heard. ABDOMEN: Soft, non tender, bowel sounds present, no organomegaly CENTRAL NERVOUS SYSTEM: Awake, alert, oriented x 3. No focal deficits. SKIN: No rashes, no swelling. LYMPHATICS: No peripheral lymphadenopathy MUSCULOSKELETAL: No joint swelling, erythema or tenderness. EXTREMITIES: No cyanosis or clubbing BACK: No deformity, no pressure ulcer. GENITOURINARY: No costovertebral angle tenderness, genitalia is normal Vital Sign (Last 24 Hours) 12/10/24 19:32 Temp 97.9 Pulse 71 Resp 20 B/P (MAP) 155/84 Pulse Ox 93 O2 Delivery Room Air* O2 Flow Rate 0 FiO2 21 LABS: DIAGNOSTICS / RADIOLOGY: CT abdomen and pelvis, stone protocol revealed two tiny stones in the left ki dney, nonobstructing, a single tiny stone in the right kidney nonobstructing there is a 2-3 mm stone lodged in the left intramural ureter at the region of the left UVJ with mild hydroureteronephrosis. ASSESSMENT: 43-year-old man with a an established history of nephrolithiasis presents to the emergency department for progressively worsening pain secondary to a left distal ureteral calculus PLAN: 1. Patient should be able to pass the stone. He has passed stones in the past. I recommend straining of urine. 2. Expectant management with tamsulosin, adequate pain control, fluid management and supportive care 3. Patient is in the process of moving to [place], no need for follow up. I advised him to establish with a urologist once he gets settled over there. 4. Thank you for involving us in the care of this patient. 60 minutes spent to complete the consult, more than half of the time spent at bedside in counseling and coordination of care and addressing questions and concerns post by patient and his partner present at bedside, some time was spent discussing with members of his care team, the rest of the time was spent reviewing medical records past and present as well as laboratory and imaging data from this encounter. IRVING GRIDER MD Dec 10, 2024 22:06
--- NOTE | 2024-12-10 23:35 | NUR ---
REPORT GIVEN TO NHUNG COLBERT
[2024-12-10 23:45] VITALS: O2SAT 93
--- NOTE | 2024-12-10 23:45 | NUR ---
ADMIT PT ADMITTED TO ROOM 324, AAOX4. DENIES ANY PAINS AT THIS TIME. NO DISTRESS NOTED. ADMISSION CARED ONE. V/S MONITORED, STABLE. ADMISSION ASSESSMENT DONE, PLEASE REFER TO CHART. CONTINUED IVF OF NS FROM ER REGULATED AT 75CC/HR. ADMISSION DATA BASE COMPLETED. ORIENTED TO ROOM AND UNIT. IN FOR MORE CARE AND MANAGEMENT. Addendum: 12/11/24 at 0047 by NHUNG GALARZA RN RN Amended: Links added.
[2024-12-11 01:27] VITALS: BP 128/71; PULSE 78; RESP 19; TEMP 98.1
[2024-12-11 04:17] VITALS: BP 121/74; PULSE 76; RESP 19; TEMP 98.1
--- NOTE | 2024-12-11 05:32 | NUR ---
ROUNDS PT SLEPT AT INTERVALS FROM ADMISSION. NO CONCERNS VERBALIZED. NO DISTRESS NOTED. KEPT RESTED AND COMFORTABLE. FOR MORE CARE.
[2024-12-11 06:32] LABS: BASOPHILS # (AUTO) 0.02 K/uL (0.00-0.20); BASOPHILS % (AUTO) 0.2 % (0.0-5.0); EOSINOPHILS # (AUTO) 0.23 K/uL (0.00-0.70); EOSINOPHILS % (AUTO) 2.6 % (0.0-8.0); HEMATOCRIT 39.1 % (42-54); IMMATURE GRANULOCYTE ABSOLUTE 0.03 K/uL (0-1); LYMPHOCYTES # (AUTO) 2.5 K/uL (1.0-4.8); MEAN CORPUSCULAR HEMOGLOBIN 29.6 pg (27.0-33.0); MEAN CORPUSCULAR HGB CONC 33.2 g/dL (32.0-36.0); MEAN CORPUSCULAR VOLUME 89.1 fL (79-99); MONOCYTES # (AUTO) 0.9 K/uL (0.1-1.0); MONOCYTES % (AUTO) 10.2 % (3.0-13.0); NEUTROPHILS # (AUTO) 5.2 K/uL (1.8-7.7); NEUTROPHILS % (AUTO) 58.7 % (40.0-77.0); PLATELET COUNT (AUTO) 298 K/uL (130-400); RED BLOOD CELL COUNT(AUTO) 4.39 MIL/uL (4.50-6.20); RED CELL DISTRIBUTION WIDTH 12.2 % (11.0-15.5); WHITE BLOOD COUNT (AUTO) 8.9 K/uL (4.8-10.8)
[2024-12-11 06:57] LABS: ALBUMIN 2.9 g/dL (3.5-5.0); BILIRUBIN,TOTAL 0.5 mg/dL (0.2-1.0); CREATININE 1.1 mg/dL (0.5-1.3); MAGNESIUM 2.1 mg/dL (1.80-2.40); POTASSIUM 3.7 mmol/L (3.5-5.1); TOTAL PROTEIN, SERUM 6.2 g/dL (6.0-8.3)
[2024-12-11 08:00] VITALS: BP 147/85; PULSE 91; RESP 19; TEMP 97.5
[2024-12-11] MEDS: tamSULOsin HCL 0.4 MG CAP.ER.24H PO SCH (08:53)
[2024-12-11 08:55] VITALS: O2SAT 95
--- NOTE | 2024-12-11 11:00 | NUR ---
PT WAITING FOR TRANSPORTATION.
--- NOTE | 2024-12-11 11:34 | DS ---
Discharge Summary Hospital Course Summary: admission date: 12/10/24 PCP: Phyllis Bangura MD This is a 43-year-old male that presents in ER with chief complaints of left sided flank pain. Apparently this patient has been seen by ER three times for similar symptoms: Patient was sent home on ibuprofen and Flomax patient reports pain subsides and then pain starts all over associated with vomiting. Patient reports taking ibuprofen 800 and deny help with pain and decided to come to ED for further evaluation. Patient has significant medical history of kidney stones in the past. Patient reports no fever chills. Given to patient has been in ER 3 times over 36 hours we will consult urologists for intervention if needed. For now we will continue with pain management. 12/11/24 patient is clinically stable for discharge. Patient passed multiple s tones. Patient will continue management with tamsulosin, adequate pain control PRN , fluid management to drink plenty of fluids. Patient is in the process of moving to [place], I advised him to establish with a urologist once he gets settled over there. All questions and concerns addressed. Procedure(s): REASON: LEFT FLANK PAIN RADIATING LEFT LOWER QUADRANT HISTORY OF STONE ORDERING PHYSICIAN: SIVAN SELBY NP PROCEDURE: ABD PEL WO - CT ABDOMEN/PELVIS W/O CONTRAST CT ABDOMEN/PELVIS W/O CONTRAST REASON: LEFT FLANK PAIN RADIATING LEFT LOWER QUADRANT HISTORY OF STONE COMPARISON: None. FINDINGS: Lung bases are clear. There is moderate hepatic steatosis.. The liver does not appear enlarged.. Spleen and pancreas appear unremarkable. The gallbladder appears normal as well. There are bilateral small kidney stones, 2 in each kidney, each less than 5 mm. There is mild left hydronephrosis and hydroureter. There is a 3 mm stone distal left ureter in the intramural portion of the ureter at the ureterovesical junction. The right ureter appears unremarkable. Urinary bladder appears normal. Bowel loops appear unremarkable. This includes normal appearance of the appendix There is no evidence of free fluid or intraperitoneal air. There are no focal fluid collections. Aorta and retroperitoneum appear normal as do pelvic soft tissue structures. The anterior abdominal wall is intact. Osseous structures appear unremarkable. IMPRESSION: 1. 3 mm stone in the distal left ureter at ureterovesical junction, there is mild left hydronephrosis. 2. There are additional subcentimeter nonobstructing stones, several in each kidney, the kidneys appear otherwise normal. 3. Moderate hepatic steatosis Assessment/Plan: Discharged dx's; intractable renal colic pain/ left flank pain resolved mild hydronephrosis left sided POA Multiple stones; 3 mm stone left distal ureteral calculus : patient has passed stone morbid obesity; BMI: 48.6 weight management discussed vaping dependency POA counseling provided PLAN: [ ] ADMISSION DATE: 12/10/24 DISCHARGE DATE: 12/11/24 DISPOSITION: home CONDITION: stable EXTRUDER(S): urologist FOLLOW UP APPOINTMENT(S): [place] [facility] 2-3 days PROCEDURES: none IMAGING (S) report attached to summary : CT abd/pelvis MICROBIOLOGY: report attached to summary; none ACTIVITY: ab clark HOME MEDICATIONS will continue with ibuprofen as needed for pain and Flomax 0 point mg p.o. daily CHANGES ON HOME MEDICATIONS; None NEW MEDICATIONS None TEACHING: . Patient is in the process of moving to [place], no need for follow up. I advised him to establish with a urologist once he gets settled over there. continue with management with tamsulosin, adequate pain control, fluid management drink plenty of fluids. Emergency instructions: The patient was instructed to present to the nearest Emergency Department or call 911 should their symptoms return or worsen. Home Medications: Active Scripts Acetaminophen with Codeine (Acetaminophen-Cod #3 Tablet) 300 Mg-30 Mg Tablet, 1 TAB PO Q6HPRN PRN for pain for 5 Days, #20 TAB 0 Refills Prov:PARMINDER AYOUB MD 12/10/24 Ketorolac Tromethamine (Toradol) 10 Mg Tab, 10 MG PO QID for pain for 5 Days, #20 TAB 0 Refills Prov:PARMINDER AYOUB MD 12/10/24 Ibuprofen (Ibuprofen 800 mg Tab) 800 Mg Tab, 800 MG PO Q8H PRN for fever or pain, #30 TAB 0 Refills Prov:SIVAN SELBY NP 12/09/24 Tamsulosin HCl (Flomax) 0.4 Mg Cap.er.24h, 0.4 MG PO DAILY for 14 Days, #14 CAPSULE. Prov:SIVAN SELBY NP 12/09/24 Continued Medications: Acetaminophen with Codeine (Acetaminophen-Cod #3 Tablet) 300 Mg-30 Mg Tablet 1 TAB PO Q6HPRN PRN for pain for 5 Days, #20 TAB 0 Refills Ibuprofen (Ibuprofen 800 mg Tab) 800 Mg Tab 800 MG PO Q8H PRN for fever or pain, #30 TAB 0 Refills Ketorolac Tromethamine (Toradol) 10 Mg Tab 10 MG PO QID for pain for 5 Days, #20 TAB 0 Refills Tamsulosin HCl (Flomax) 0.4 Mg Cap.er.24h 0.4 MG PO DAILY for 14 Days, #14 CAPSULE.DR Time spent arranging discharge: 31-60 minutes ATTESTATION BY PHYSICIAN I have seen and examined the patient. I reviewed the documentation, medical decision making, and treatment plan as noted by the mid-level provider above. I agree with the findings and plan of care. LEMUEL ORELLANA MD, ELIZABETH NP Dec 11, 2024 11:34
--- NOTE | 2024-12-11 11:50 | NUR ---
DC ORDERS GIVEN TO PT, STILL WAITING ON TRANSPORTATION.
--- NOTE | 2024-12-11 11:55 | NUR ---
DCP: HOME Pt lives with Adela Poe [phone] and small children. Pt does not have any insecurities with food, long-term, and/or utilities. Pt does not have DME, home health, or provider services. Pt is able to complete ADLs independently. PCP is Dr. Willem Ferguson and uses [facility] for any RX needs. At [place] pt will go home and family will assist with transportation. Addendum: 12/11/24 at 1158 by SANYA DOMINIQUE SS Amended: Links added.
--- NOTE | 2024-12-11 12:25 | NUR ---
DC NOTE DC INSTRUCTION AND FOLLOW UP APPOINTMENT WITH OUT OF TOWN PHYSICIAN. VERBALIZED UNDERSTANDING. PIV REMOVED, CATHETER INTACT, DENIES ANY PAIN OR DISCOMFORT AT THIS TIME. PT REFUSED TO WHEELED DOWN WITH WHEELCHAIR AND PREFER TO AMBULATE WITH SENIOR SOFTWARE TESTER INTO VIA PRIVATE CAR. NO FURTHER COMMENTS OR CONCERNS AT THIS TIME. PT VERY EAGER TO BE DC DUE TO MOVING OUT OF TOWN.
== END 2024-12-11 12:25 | disposition home or self-care (01) ==
LOC: EDH 10:50 → EDHIP 15:39 → INTOOBSV 15:39 → 3DH 23:37
PROVIDERS: ADMIT Internal Medicine; ATTEND Internal Medicine
DX: N13.2 Hydronephrosis with renal and ureteral calculous obstruction (principal); E66.01 Morbid (severe) obesity due to excess calories; N23 Unspecified renal colic; R31.9 Hematuria, unspecified; Z68.42 Body mass index [BMI] 45.0-49.9, adult; Z79.899 Other long term (current) drug therapy
CPT/HCPCS: 96376; 96372 ×2; 96361 ×3; 96365; 96375; 99284; 83735; 80053; 85025; 36415; G0378 ×21; J1171; J2270 ×2; J7030 ×3; J0696; J2405 ×2; J1885 ×2; J1644 ×2; 99285